=== PATIENT | female | born 1980 | race Two or more races ===

== ENCOUNTER 2017-10-05 10:27 | Emergency (ER) | payer OTHER ==
[~2017-10-05] VITALS: Ht 152.4 cm; Wt 127.0 kg
[2017-10-05 11:05] LABS: Hemoglobin 8.1 g/dL (12.2-16.2); Nucleated Red Blood Cells % 0.1 %
[2017-10-05 11:07] LABS: Basophils # (auto) 0.1 uL; Basophils % (auto) 0.7 % (0.0-2.0); Eosinophils # (auto) 0.3 uL; Eosinophils % (auto) 3.6 % (0.0-7.0); Hematocrit 26.7 % (36.0-46.0); Lymphocytes # (auto) 2.5 uL; Lymphocytes % (auto) 28.5 % (10.0-50.0); Mean Corpuscular Hemoglobin 19.3 pg (28.0-32.0); Mean Corpuscular Hgb Conc. 30.4 g/dL (32.0-36.0); Mean Corpuscular Volume 63.5 fL (80.0-100.0); Monocytes # (auto) 0.6 uL; Monocytes % (auto) 6.9 % (0.0-12.0); Neutrophils # (auto) 5.4 uL; Neutrophils % (auto) 60.3 % (37.0-80.0); Platelet Count (auto) 317 10^3/uL (140-450); White Blood Cell 8.9 10^3/uL (4.4-10.8)
[2017-10-05 11:12] LABS: Urine Bacteria FEW /hpf (None Seen); Urine Blood 3+ /uL (Negative); Urine Mucus FEW (None Seen); Urine Specific Gravity 1.025 (1.001-1.035); Urine WBC 6 /hpf (0 - 5)
[2017-10-05 11:27] LABS: Albumin 2.9 g/dL (3.4-5.0); Bilirubin, Total 0.4 mg/dL (0.2-1.0); Calcium 8.1 mg/dL (8.5-10.1); Total Protein 7.8 g/dL (6.4-8.2)
[2017-10-05 11:28] VITALS: BP 143/96
== END 2017-10-05 12:26 | disposition home or self-care (01) ==
LOC: ER 10:27
DX: N93.8 Other specified abnormal uterine and vaginal bleeding (principal); D64.9 Anemia, unspecified; R42 Dizziness and giddiness; Z98.51 Tubal ligation status
CPT/HCPCS: 36415; 80053; 81001; 81025; 85025; 94761

== ENCOUNTER 2017-10-12 09:55 | Emergency (ER) | payer OTHER ==
[2017-10-12] VITALS (13 sets, daily range): BP systolic 54–152; BP diastolic 31–84
[~2017-10-12] VITALS: Ht 152.4 cm; Wt 133.4 kg
[2017-10-12] MEDS ORDERED: SODIUM CHLORIDE 0.9% 500 ML IV ONE (10:30)
[2017-10-12 11:08] LABS: Hematocrit 26.3 % (36.0-46.0); Hemoglobin 7.8 g/dL (12.2-16.2)
[2017-10-12 11:10] LABS: INR 0.92 (0.9-1.15); Partial Thromboplastin Time 23.8 sec (22.64-33.71)
[2017-10-12 11:23] LABS: BUN/Creatinine Ratio 17.2; Calcium 8.8 mg/dL (8.5-10.1)
== END 2017-10-12 21:17 | disposition home or self-care (01) ==
LOC: ER 09:55
DX: D25.9 Leiomyoma of uterus, unspecified (principal); D50.0 Iron deficiency anemia secondary to blood loss (chronic); R53.1 Weakness; Z98.51 Tubal ligation status; R42 Dizziness and giddiness
CPT/HCPCS: 36415; 36430; 76856; 80048; 85014; 85018; 85610; 85730; 86850; 86900; 86901; 86920; 94761; 96360; 99285; P9016; 76830